=== PATIENT | male | born 1965 | race Caucasian/White ===

== ENCOUNTER 2017-06-10 07:15 | Emergency (ER) | payer BC ==
[2017-06-10 07:29] VITALS: BP 159/81
[2017-06-10] MEDS ORDERED: KETOROLAC TROMETHAMINE 60 MG/2 ML VIAL IM ONE ×2 (07:38→07:40)
--- NOTE | 2017-06-10 07:38 | ERNOTE ---
<Tete Whatley - Last Filed: 06/10/17 07:34> Back Pain ER HPI Date of Service: 06/10/17 Time Seen by Provider: 06/10/17 07:31 Source: patient Exam Limitations: no limitations Immunizations: IMMUNIZATION HX Immunizations Up to Date Yes History of Influenza Vaccine No Allergies/Adverse Reactions: Allergies Penicillins Allergy (Verified 06/10/17 07:29) Home Medications: HOME MEDICATIONS Albuterol Sulfate [Proventil Hfa] 6.7 gm IH Q4H PRN 09/01/15 [Last Taken Unknown ] Dabigatran Etexilate Mesylate [Pradaxa] 75 mg PO DAILY 06/10/17 [Last Taken Unknown] oxyCODONE HCL/ACETAMINOPHEN [Percocet 5 MG/325 MG] 1 tab PO Q4H PRN #20 tab 11/21 [Last Taken Unknown] Narrative: This patient presents to our emergency room for severe pain in the right lower back radiating down his right lower extremity. Patient has had a problem with sciatic-like back pain with radiculopathy for the past 2-1/2 months. He has had x-rays done of his low back and has been told that he has degenerative joint disease of the spine. This particular sciatic episode began last night. Patient denies any activity that may have irritated it. He states that he did get up out of a chair and that's when he felt a twinge and since then the pain has gotten worse. He rates the pain at 12 out of 10 however when he is laying down flat on his back his pain is 4 out of 10. He denies any bowel or bladder dysfunction or difficulties Review of Systems - Review of Systems Constitutional: Present: no symptoms reported EYE: Present: no symptoms reported ENT: Present: no symptoms reported Respiratory: Present: no symptoms reported Cardiology: Present: no symptoms reported Gastrointestinal/Abdominal: Present: no symptoms reported Genitourinary: Present: no symptoms reported Musculoskeletal: Present: See HPI, back pain Skin: Present: no symptoms reported - Patient's Past Medical History Patient History - Medical: Chronic Pain Patient History - Cardiac/Respiratory: Bronchitis, COPD, Deep Vein Thrombosis Patient History - Cancer: No Hx of Cancer Patient History - Surgical Procedures: Other Patient History - Other: None - Family History Mother Family History - Medical: Father Family History - Cardiac/Respiratory: Coronary Heart Disease, COPD - Social History Abuse History: No History of abuse Psych History: No pertinent hx Smoking Status: Current every day smoker Have you smoked in the past 12 months: Yes - Immunizations Immunizations Up to Date: Yes History of Influenza Vaccine: No Physical Exam - Physical Exam General Appearance: Present: wd/wn, alert, mild distress Head Exam: Present: normal inspection, no evidence of injury Respiratory: Present: no respiratory distress, normal breath sounds, no accessory muscle use, chest nontender, lungs clear Cardiovascular/Chest: Present: regular rate, rhythm, no murmur, normal peripheral pulses Back Exam: Present: other - no anomalies noted on visual exam. Pt has muscle spasm of the right lumbar paravertebral area. He does also have some muscle spasm in the corresponding region. He has a good Patellar reflex on the right side however. ED Progress - Vital Signs Patient's Vital Signs:: I have reviewed the patient's vital signs. Vital Signs: Vital Signs 06/10/17 07:25 Temperature 36.7 C Pulse Rate 72 Respiratory 14 Rate Blood Pressure 159/81 O2 Sat by Pulse 97 Oximetry - Progress/Reassessment Chief Complaint: Back Pain - Transfer of Care Physician Sign Out: Tete Whatley Receiving Physician: Payal Gutiérrez Plan - Plan Plan: pt has right sided sciatica with radiculopathy and muscle spasm of the right lumbar paravertebral region. Departure Clinical Impression: Sciatica associated with disorder of lumbar spine - Departure Disposition: Home self-care Condition: Good Instructions: Sciatica, [id number] Additional Instructions: call your doctor for follow up after the weekend Referrals: Jenna Sifuentes DO [Associate] - Prescriptions: oxyCODONE HCL/ACETAMINOPHEN [Percocet 5 MG/325 MG] 1 tab PO Q4H PRN #20 tab PRN Reason: Pain <Payal Gutiérrez - Last Filed: 06/10/17 09:10> Back Pain ER HPI Immunizations: IMMUNIZATION HX Immunizations Up to Date Yes History of Influenza Vaccine No ED Progress - Vital Signs Patient's Vital Signs:: I have reviewed the patient's vital signs. Vital Signs: Vital Signs 06/10/17 07:25 Temperature 36.7 C Pulse Rate 72 Respiratory 14 Rate Blood Pressure 159/81 O2 Sat by Pulse 97 Oximetry - Progress/Reassessment Progress Note-Subjective: 06/10/17 09:06 Patient had back pain 15 years ago, treated with ISATU and resolved. Back pain started again three months ago, no injury, seen by his PCP, also tried TENS unit , traction device chiropractor, stretching exercise. He seems to be getting better till last night when the pain got worse again. He took the last dilaudid that he had left from his skin grafts. He does not like strong pain medications as they make him tired. Toradol (ordered by Dr Whatley) did not help. He is on pradaxa fro DVTs. Will try percocet
[2017-06-10] MEDS ORDERED: oxyCODONE HCL/ACETAMINOPHEN 1 TAB TABLET PO ONE (09:00)
[2017-06-10] MEDS ORDERED: oxyCODONE HCL/ACETAMINOPHEN 1 TAB TABLET ONE (09:06)
== END 2017-06-10 09:11 | disposition home or self-care (01) ==
LOC: ER 07:15
DX: M54.31 Sciatica, right side (principal); M53.86 Other specified dorsopathies, lumbar region